=== PATIENT | female | born 1985 | race Native Hawaiian/Other Pacific Islander ===

== ENCOUNTER 2017-11-17 19:55 | Emergency (ER) | payer OTHER ==
[2017-11-17 20:09] VITALS: BP 106/64; PULSE 86; RESP 18; TEMP 98.7; O2SAT 100
--- NOTE | 2017-11-17 21:26 | ED PDOC ---
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 Patient denies feeling any numbness or tingling and denies any other injury. PMD: Sadiq Walton Past Medical History Reviewed: Historical Data, Nursing Documentation, Vital Signs Vital Signs: Last Vital Signs Temp 98.7 F 11/17/17 20:06 Pulse 86 11/17/17 20:06 Resp 18 11/17/17 20:06 BP 106/64 11/17/17 20:06 Pulse Ox 100 11/17/17 20:06 - Medical History PMH: No Chronic Diseases - Surgical History Surgical History: No Surg Hx - Family History Family History: States: Unknown Family Hx - Allergies Allergies/Adverse Reactions: Allergies Allergy/AdvReac Type Severity Reaction Status Date / Time No Known Allergies Allergy Verified 11/17/17 20:05 Review of Systems ROS Statement: Except As Marked, All Systems Reviewed And Found Negative Musculoskeletal: Positive for: Foot Pain (left foot and ankle pain). Negative for: Other (numbness or tingling ) Physical Exam - Reviewed Nursing Documentation Reviewed: Yes Vital Signs Reviewed: Yes - Physical Exam Appears: Positive for: Well Head Exam: Positive for: ATRAUMATIC, NORMOCEPHALIC Skin: Positive for: Normal Color, Warm Eye Exam: Positive for: Normal appearance Pulses-Radial (L): 2+ Pulses-Radial (R): 2+ Extremity: Positive for: Tenderness (left dorsal foot), Swelling (mild swelling of left dorsal foot), Other (mild ecchymosis of left dorsal foot; no tenderness, swelling, deformity of L ankle). Negative for: Deformity Neurologic/Psych: Positive for: Alert, Oriented (x3) - ECG O2 Sat by Pulse Oximetry: 100 (RA) Pulse Ox Interpretation: Normal - Radiology X-Ray: Interpreted by Ok (L foot x-ray) X-Ray Interpretation: No Acute Disease - Progress ED Course And Treament: Ankle/foot immobilized in L aircast splint applied by driver service technician. Crutches recommended but refused. Informed that if pain continues she will need to f/u with ortho or podiatry for further evaluation. Medical Decision Making Medical Decision Making: Initial Time: 20:30 Initial Plan: --Foot left 3 views X-ray Scribe Attestation: Documented by Thony Lawton, acting as a scribe for Rajesh Herrera Provider Scribe Attestation: All medical record entries made by the Scribe were at my direction and personally dictated by me. I have reviewed the chart and agree that the record accurately reflects my personal performance of the history, physical exam, medical decision making, and the department course for this patient. I have also personally directed, reviewed, and agree with the discharge instructions and disposition. Disposition - Clinical Impression Clinical Impression: Foot sprain - Patient ED Disposition Is Patient to be Admitted: No - Disposition Referrals: Dago Gil MD [Staff Provider] - Ulises Zamora MD [Staff Provider] - Disposition: Routine/Home Disposition Time: 21:44 Condition: STABLE Additional Instructions: MESHA MOYER, thank you for letting us take care of you today. Your provider was Adonay Alvarez MD and you were treated for LT ANKLE PAIN. The emergency medical care you received today was directed at your acute symptoms. If you were prescribed any medication, please fill it and take as directed. It may take several days for your symptoms to resolve. Return to the Emergency Department if your symptoms worsen, do not improve, or if you have any other problems. Please contact your doctor or call one of the physicians/clinics you have been referred to that are listed on the Patient Visit Information form that is included in your discharge packet. Bring any paperwork you were given at discharge with you along with any medications you are taking to your follow up visit. Our treatment cannot replace ongoing medical care by a primary care provider outside of the emergency department. Thank you for allowing the [facility] team to be part of your care today. If you had an X-Ray or CT scan: A Radiologist will review the ED reading if any change in treatment is needed we will contact you. If you had a blood, urine, or wound culture: It will take several days for the results, if any change in treatment is needed we will contact you. If you had an STI test: It will take 48 hours for the results. Please call after 1 week if you have not heard back. Instructions: Foot Sprain (DC) Forms: [place] ([place]), [facility] ED School/Work Excuse
--- NOTE | 2017-11-18 10:37 | RAD ---
Date of service: 11/17/2017 PROCEDURE: Left Foot Radiographs. HISTORY: Trauma COMPARISON: None. FINDINGS: BONES: Bone alignment and mineralization are normal. There is no acute displaced fracture or bone destruction. JOINTS: Normal. SOFT TISSUES: Normal. OTHER FINDINGS: None. IMPRESSION: No acute fracture or dislocation.
== END 2017-11-17 22:12 | disposition home or self-care (01) ==
LOC: H.ER 19:55
DX: S93.602A Unspecified sprain of left foot, initial encounter (principal); X50.1XXA Overexertion from prolonged static or awkward postures, initial encounter